=== PATIENT | male | born 1930 | race Caucasian/White ===

== ENCOUNTER 2021-05-02 | Outpatient (CLI) | payer MEDICARE, OTHER | END 2021-05-02 09:45 | disposition home or self-care (01) | DX: R06.00 Dyspnea, unspecified (principal) ==

== ENCOUNTER 2022-03-25 15:52 | Outpatient (CLI) | payer OTHER, MEDICARE | END 2022-03-25 15:53 | disposition home or self-care (01) | LOC: BICRAD 15:52 | PROVIDERS: ATTEND Family Medicine | DX: R07.89 Other chest pain (principal) | CPT/HCPCS: 71046 ==